=== PATIENT | male | born 1955 | race Caucasian/White ===

== ENCOUNTER 2019-05-21 23:43 | Emergency (ER) | payer OTHER ==
[~2019-05-21] VITALS: Ht 185.4 cm; Wt 106.6 kg
[2019-05-22 00:44] LABS: Basophils # (auto) 0 uL; Basophils % (auto) 0.4 % (0.0-2.0); Eosinophils # (auto) 0.1 uL; Eosinophils % (auto) 1.8 % (0.0-7.0); Hematocrit 45.5 % (41.0-53.0); Hemoglobin 15.5 g/dL (13.5-17.5); Lymphocytes # (auto) 1.9 uL; Mean Corpuscular Hemoglobin 30.9 pg (28.0-32.0); Mean Corpuscular Hgb Conc. 34.1 g/dL (32.0-36.0); Mean Corpuscular Volume 90.4 fL (80.0-100.0); Monocytes # (auto) 0.5 uL; Monocytes % (auto) 10.7 % (0.0-12.0); Neutrophils # (auto) 2.1 uL; Neutrophils % (auto) 45.1 % (37.0-80.0); Nucleated Red Blood Cells % 0.1 %; Platelet Count (auto) 323 10^3/uL (140-450); Red Blood Cells 5.03 10^6/uL (4.5-5.90); Red Cell Distribution Width 13.3 % (11.8-14.3); White Blood Cell 4.6 10^3/uL (4.4-10.8)
[2019-05-22 01:00] LABS: INR 1.01 (0.9-1.15); Partial Thromboplastin Time 29.1 sec (23.64-32.05)
[2019-05-22 01:02] LABS: Albumin 3.5 g/dL (3.4-5.0); BUN/Creatinine Ratio 18.1; Calcium 8.9 mg/dL (8.5-10.1); Potassium 3.8 mmol/L (3.5-5.1)
[2019-05-22 01:05] LABS: Bilirubin, Total 0.3 mg/dL (0.2-1.0); Total Protein 7.4 g/dL (6.4-8.2)
[2019-05-22] MEDS ORDERED: LORazepam 2MG/ML-1ML VIAL IV ONE (07:15)
[2019-05-22 08:31] VITALS: BP 138/89
== END 2019-05-22 08:58 | disposition home or self-care (01) ==
LOC: EDBD 23:43 → ER 23:43
DX: J18.9 Pneumonia, unspecified organism (principal); K59.00 Constipation, unspecified; F41.9 Anxiety disorder, unspecified
CPT/HCPCS: 36415; 71045; 71250; 74176; 80053; 80320; 83605; 83880; 85025; 85610; 85730; 93005; 96374; 99284; J2060

== ENCOUNTER 2022-06-19 17:07 | Emergency (ER) | payer OTHER ==
[~2022-06-19] VITALS: Ht 182.9 cm; Wt 110.0 kg
[2022-06-19 19:08] VITALS: BP 137/87
[2022-06-19] MEDS ORDERED: NAP500T PO (19:57)
[2022-06-19] MEDS ORDERED: CYCL-837 PO (19:58)
[2022-06-19] MEDS ORDERED: KETOROLAC TROMETH 60MG/2ML VIAL IM ONE (20:00)
== END 2022-06-19 22:01 | disposition home or self-care (01) ==
LOC: ER 17:07
DX: M54.32 Sciatica, left side (principal); Z98.890 Other specified postprocedural states
CPT/HCPCS: 72100; 96372; 99283; J1885